=== PATIENT | female | born 1990 | race Caucasian/White ===

== ENCOUNTER 2017-04-09 12:50 | Outpatient (CLI) | payer MEDICAID, OTHER ==
--- NOTE | 2017-04-09 16:14 | ULT ---
PELVIC ULTRASOUND: HISTORY: patient. Left adnexal pain. Positive test. COMPARISON None. TECHNIQUE: Transvesical and endovaginal imaging of the pelvis is performed. The ovaries are interrogated. Gra y-scale, color-flow, Doppler imaging, and spectral wave-form analysis. FINDINGS: The uterus is identified, measuring 10 x 6 x 6.2 cm. There is a heterogeneous, thickened endometriu m with a diameter of 2.5 cm. The right ovary has a normal echotexture, measuring 2.7 x 2.2 x 2.8 cm. The left adnexa has a bilobed, hypoechoic focus, which appears to be paraovarian in location. Overa ll, this lesion and the ovary measure 3.9 x 3.2 x 4.9 cm. No significant free fluid in the pelvis. OVARIAN DOPPLER: Vascular flow to the left adnexal structures, as well as the right ovary. IMPRESSION: 1. Thickened endometrium without sonographic evidence of an intrauterine gestation. Differential c onsiderations include a missed spontaneous versus a sonographically occult ectopic pregnanc y versus an early intrauterine gestation. 2. Complex bilobed lesion in the left adnexa, which may represent a corpus luteal cyst or hemorrhag ic cyst. Imaging features are not typical for an ectopic . [id number], the possibilit y of a sonographically occult ectopic is still a consideration. Therefore, follow-up ultr asound and serial beta hCGs are recommended. The results of the study were discussed with Laverne Carney on 04/03/2017 at 1:58 p.m. CODE CR POS: [facility]
== END 2017-04-09 12:51 | disposition home or self-care (01) ==
LOC: ULT 12:50
PROVIDERS: ATTEND Family Medicine
DX: Z34.81 Encounter for supervision of other normal pregnancy, first trimester (principal); R93.8 Abnormal findings on diagnostic imaging of other specified body structures
CPT/HCPCS: 76856

== ENCOUNTER 2017-08-07 21:06 | Day surgery (SDC) | payer MEDICAID, OTHER ==
[2017-08-07 21:42] VITALS: TEMP 98.1; BMI 26.3
--- NOTE | 2017-08-07 21:51 | PDOC.EVN ---
Event Note - Event Note Event Note: @8443 L&D Triage Patient of Dr Roman CC: here for pelvic discomfort and urinary frequency HPI: 26 yo at 27 weeks with pelvic discomfort. No VB nor LOF. Good FM, no contractions. No recemt trauma. States urinary frequency bit no fevers nor dysuria. Review of systems: complete systems ROS done and pos per HPI Past medical: none Past surgical : none Allergies: none PHYSICAL: 112/65, 80 afebrile NAD abd soft, nt no evidence VB or LOF Monitors: cat 1 for EGA, no contractions on toco Assessment/plan: 27 weeks with pelvic discomfort. No evidence or HX of PTL plan: 1. monitors 2. check UA 3. no evidence contraction at this time
[2017-08-07 22:23] LABS: Bilirubin Negative (Negative); Blood, Urine Negative (Negative); Clarity CLOUDY (Clear); Glucose, Urine (Dipstick) Negative (Negative); Leukocyte Small (Negative); Nitrite Negative (Negative); Protein, Urine (Dipstick) Negative (Neg-Trace); Specific Gravity, Urine 1.021 (1.002-1.036)
[2017-08-07 22:25] LABS: Bacteria/HPF None Seen HPF (None Seen); Hyaline Casts/LPF 0-3 HYALINE CAST LPF (0-3 Hyaline); RBC/HPF 0-3 HPF (0-3); Squamous Epithelial 0-3 HPF (0-3); WBC/HPF 0-3 HPF (0-3)
--- NOTE | 2017-08-07 22:29 | PDOC.EVN ---
Event Note - Event Note Event Note: @2980: ADDENDUM: Incorrect EDC imputed at first. Patient confirmed she is NOT 27 weeks but actually 22 weeks and 4 days. Also now does state some abnormal discharge as well on/off. I have stopped the NST and ordered a VP3. No evidence labor at this time. Plan D/W patient and partner.
--- NOTE | 2017-08-07 23:09 | PDOC.EVN ---
Event Note - Event Note Event Note: Lab check: UA unremarkable. Awaiting VP3
--- NOTE | 2017-08-07 23:45 | PDOC.EVN ---
Event Note - Event Note Event Note: Lab check: awaiting VP3...called lab. Likely will not be back until tomorrow due to batch testing. Recommend she follow up results Wednesday with her MD.
== END 2017-08-08 | disposition home or self-care (01) ==
LOC: L&D/OP 21:06
PROVIDERS: ATTEND Family Medicine
DX: O99.89 Other specified diseases and conditions complicating pregnancy, childbirth and the puerperium (principal); R10.2 Pelvic and perineal pain; Z3A.22 22 weeks gestation of pregnancy
CPT/HCPCS: 81003; 81015; 87480; 87510; 87660

== ENCOUNTER 2017-09-26 11:07 | Day surgery (SDC) | payer OTHER ==
--- NOTE | 2017-09-26 11:23 | PDOC.LDHP ---
Labor and Delivery H&P Chief complaint: decreased movement HPI: 26 y/o at 29w5d, patient of Dr. Roman, presents with decreased movement since yesterday. She also reports continued irregular contractions but nothing new to her. Denies VB, LOF, or other concerns. ROS neg for HEENT, cv, pulm, gi, gu, neuro, psych, skin, musculoskeletal or constitutional symptoms other than mentioned above. OB History Details: 2 prior term SVDs Current complications: none Past Medical History: None Current medications: pre- vitamins Previous surgical history: none Allergies/Adverse Reactions: Allergies Allergy/AdvReac Type Severity Reaction Status Date / Time No Known Allergies Allergy Verified 06/22/15 08:19 Social history: none - Physical Exam Vital signs reviewed and normal: yes General: NAD, resting Lungs: nonlabored breathing Abdomen: gravid Extremeties: no edema FHT: category 1 (130s, mod variability, + accels, no decels) [place] contractions every: irregular - Vaginal Exam cm dilated: 0 (posterior, firm) Effacement: 0% Station: -3 - Assessment 26 y/o at 29w5d with reassuring status and no e/o PTL. - Plan -: D/c home with precautions. Advised to keep all appointments.
[2017-09-26 11:27] VITALS: BMI 27.6
[2017-09-26 11:34] VITALS: BP 104/59; TEMP 98.4
== END 2017-09-26 12:35 | disposition home or self-care (01) ==
LOC: L&D/OP 11:07
PROVIDERS: ATTEND Family Medicine
DX: O36.8130 Decreased fetal movements, third trimester, not applicable or unspecified (principal); Z3A.29 29 weeks gestation of pregnancy; Z79.899 Other long term (current) drug therapy
CPT/HCPCS: 59025; 99282

== ENCOUNTER 2017-09-30 19:27 | Inpatient (IN) | payer OTHER ==
[2017-09-30 19:57] VITALS: BMI 27.6
[2017-09-30 20:56] LABS: Bilirubin Negative (Negative); Blood, Urine Negative (Negative); Clarity CLEAR (Clear); Glucose, Urine (Dipstick) Negative (Negative); Leukocyte Negative (Negative); Nitrite Negative (Negative); Protein, Urine (Dipstick) Negative (Neg-Trace); Specific Gravity, Urine 1.012 (1.002-1.036); Urobilinogen 0.2 mg/dL (0.2-1.0)
[2017-09-30] MEDS ORDERED: Lactated Ringer's 500 ML IV SCH (21:30)
[2017-09-30] MEDS ORDERED: Lactated Ringer's 1,000 ML IV SCH (21:30)
--- NOTE | 2017-09-30 22:17 | PDOC.EVN ---
Event Note - Event Note Event Note: Continues to c/o of UCs despite po fluids here. UA returns negative. Fhts are stable. No decels seen. UCs seen every 3-4 mins. Plan; start iv for bolus. Observe closely. Dr. Roman notified.
[2017-09-30] MEDS ORDERED: Promethazine HCl 25 MG/ML VIAL IM PRN (23:08)
[2017-09-30] MEDS ORDERED: Docusate 100 MG CAP PO PRN (23:08)
[2017-09-30] MEDS ORDERED: Ondansetron HCl/PF 4 MG/2 ML Vial IVP PRN (23:08)
[2017-09-30] MEDS ORDERED: Magnesium Sulfate 20 GM/WATER 500 ML BAG IVPB SCH (23:15)
--- NOTE | 2017-09-30 23:24 | PDOC.EVN ---
Event Note - Event Note Event Note: Continues to c/o contractions despite IV fluids and Stadol x1. FHTs are stable. UCs continue q 2-3 mins. SVE by me= / with bulging ALEJANDRA. D/w Dr. Roman. Will start MgSo4, steroids and Ampicillin and obtain USG for EFW and presentation.
[2017-10-01] MEDS: Betamet Acet/Betamet Na Ph 30 MG/5 ML VIAL IM SCH (00:17)
[2017-10-01] MEDS: Lactated Ringer's 1,000 ML IV SCH ×2 (00:34→17:05)
[2017-10-01] MEDS: Magnesium Sulfate 20 gm/500 ml 20 GM/500 ML BAG IVPB SCH ×3 (00:35→17:30)
[2017-10-01] MEDS: Ampicillin 2 GM in Sodium Chloride 0.9% 100 ML IVPB SCH ×4 (00:42→18:19)
[2017-10-01 01:09] LABS: Hemoglobin 10.4 g/dL (12.0-16.0); Mean Corpuscular HGB CONC 36.4 g/dL (32.0-36.0); Mean Corpuscular Hemoglobin 31.3 pg (27.0-31.0); Mean Corpuscular Volume 85.8 fl (81.0-99.0); Mean Platelet Volume 7.6 fL (7.4-10.4); Platelet Count 160 thou/uL (130-400); RBC Distribution Width 11.2 % (11.5-14.5); Red Blood Cell (RBC) Count 3.32 mill/uL (4.20-5.40); White Blood Cell (WBC) Count 7.8 thou/uL (4.8-10.8)
--- NOTE | 2017-10-01 02:10 | PDOC.EVN ---
Event Note - Event Note Event Note: Mg load given, now at 2 gms/hr. 1st dose of steroids given. FHTs stable. UCs decreased to q 7 mins. USG shows vtx presentation and 1600+ gms. Will cont. MgSo4 and give 2nd dose of Celestone in 24 hrs.
--- NOTE | 2017-10-01 03:12 | SS ---
LABOR AND DELIVERY TRIAGE EVALUATION NOTE DATE OF EVALUATION: 09/30/2017 REGULAR PHYSICIAN: Glenn Roman MD EVALUATING PHYSICIAN: Tito Ribeiro MD CHIEF COMPLAINT: Contractions. HISTORY OF PRESENT ILLNESS: Ms. Aguiar is a 26-year-old white -0-0-2 with an estimated date of c onfinement of 12/07/2017 who presents to labor and delivery complaining of regular uterine contractio ns since earlier this afternoon. She denies vaginal bleeding or ruptured membranes. PAST OBSTETRICAL HISTORY: She has had 2 uncomplicated vaginal deliveries at term. She denies preter m labor with either one. Her current care has been with Dr. Roman. PAST MEDICAL HISTORY: Unremarkable. PAST SURGICAL HISTORY: None. CURRENT MEDICATIONS: vitamin. ALLERGIES: None. SOCIAL HISTORY: She denies tobacco or alcohol use. FAMILY HISTORY: Unremarkable. REVIEW OF SYSTEMS: Reports contractions. Denies nausea, vomiting, fever, chills, vaginal bleeding, or ruptured membranes. PHYSICAL EXAMINATION: VITAL SIGNS: Stable and she is afebrile. GENERAL: She is in no acute distress. ABDOMEN: Soft, nontender and gravid. On pelvic exam by the labor nurse, the cervix is 1 cm dilated, uneffaced with the presenting part high. heart rate tracing is stable with no decelerations. It is reassuring. Uterine contractions are seen every 2-4 minutes. ASSESSMENT: 1. 30 and 2/7 week intrauterine . 2. contractions, rule out labor. PLAN: At this time, the patient will be given IV fluid and observed. Urinalysis is pending. I have discussed the patient with Dr. Roman and we will continue to observe her for change.
--- NOTE | 2017-10-01 06:11 | PDOC.EVN ---
Event Note - Event Note Event Note: Feeling better. No c/o. FHTs reassuring. Only occasional UC seen. Mg at 2 gms/hr. Advance diet. Cont. present management.
[2017-10-01] MEDS ORDERED: Azithromycin 1,000 MG in Sodium Chloride 0.9% 500 ML IVPB ONE (08:00)
--- NOTE | 2017-10-01 08:27 | ULT ---
PRELIMINARY REPORT/[facility]/EMERGENTY AFTER-HOURS PROCEDURE US Uterus, Limited EXAM DATE/TIME: Exam ordered 09/30/2017 11:34 PM CLINICAL HISTORY: 26 years old, female; Pain; complicated by abdominal or pelvic pain; Lower; Third trimeste r; Gestational age or lmp: 31w3d; ; Patient HX: labor TECHNIQUE: Real-time ultrasound of the maternal uterus (limited) with image documentation. COMPARISON: No relevant prior studies available. FINDINGS: Fetus: Single live intrauterine gestation. Gestational age: biometry measurements are compatible with estimated gestational age of 31 week s 3 days. EFW: Estimated weight is 1616 g. Position: position is vertex. Heart rate: heart rate 130 beats per minute. Placenta: Placenta is anterior and unremarkable. Amniotic fluid: Amniotic fluid volume is normal with an SHERRILL of 17.4 cm. Cervix: Cervix is closed with length measuring 3.7 cm. IMPRESSION: Single live intrauterine gestation as above. Thank you for allowing us to participate in the care of your patient. Dictated and Authenticated by: Ubaldo Hall MD 10/01/2017 12:28 AM Central Time ([place] & [place]) FINAL REPORT OBSTETRIC SONOGRAM LIMITED: DATE: 09/30/17. TIME: Performed on an emergency basis at 2336 hours. HISTORY: Pelvic pain. Third trimester . FINDINGS: Findings agree with the preliminary report from [facility]. Single viable intrauterine gestat ion is confirmed with estimated gestational age of 31 weeks 3 days. Amniotic fluid index is 17.4. POS: [facility]
[2017-10-01] MEDS ORDERED: Acetaminophen 500 MG TAB PO PRN (18:24)
--- NOTE | 2017-10-01 19:05 | PDOC.EVN ---
Event Note - Event Note Event Note: L&D on 10/01 @ 1900: Notified by RN that patient concerned about ROM. There is no gross evidence of ROM clinically by bedside assesment. I have ordered amnisure and will sterile spec is positive.
[2017-10-01 19:35] LABS: Amnisure Internal Control QC ACCEPTABLE (ACCEPTABLE); Amnisure Test No Membranes Rupture (No Rupture)
[2017-10-02] MEDS: Ampicillin 2 GM in Sodium Chloride 0.9% 100 ML IVPB SCH ×4 (00:05→18:25)
[2017-10-02] MEDS: Betamet Acet/Betamet Na Ph 30 MG/5 ML VIAL IM SCH (00:05)
[2017-10-02] MEDS: Zolpidem Tartrate 5 MG TAB PO PRN ×2 (02:35→21:40)
[2017-10-02] MEDS ORDERED: Magnesium Sulfate 20 gm/500 ml 20 GM/500 ML BAG ONE (03:01)
[2017-10-02] MEDS: Lactated Ringer's 1,000 ML IV SCH (09:10)
[2017-10-03] MEDS: Ampicillin 2 GM in Sodium Chloride 0.9% 100 ML IVPB SCH ×2 (00:05→06:30)
[2017-10-03 08:44] VITALS: TEMP 99.2
[2017-10-03 11:38] VITALS: BP 99/58
[2017-10-03] MEDS: Lactated Ringer's 1,000 ML IV SCH (11:39)
== END 2017-10-03 12:05 | disposition home health service (06) | DRG 778 ==
LOC: L&D/OP 19:27 → L&D 23:14
PROVIDERS: ADMIT Family Medicine; ATTEND Family Medicine
DX: O60.03 Preterm labor without delivery, third trimester (principal); Z3A.30 30 weeks gestation of pregnancy
CPT/HCPCS: 36415; 51702; 76815; 81003; 84112; 85027; 87081; 87480; 87510; 87660; 99285; J0290; J0456; J0595; J0702; J2550; J3475; J7050

== ENCOUNTER 2017-10-11 21:24 | Day surgery (SDC) | payer OTHER ==
[2017-10-11 22:00] VITALS: BMI 27.6
[2017-10-11 23:00] LABS: Bilirubin Negative (Negative); Blood, Urine Negative (Negative); Clarity CLEAR (Clear); Glucose, Urine (Dipstick) Negative (Negative); Leukocyte Negative (Negative); Nitrite Negative (Negative); Protein, Urine (Dipstick) Negative (Neg-Trace); Specific Gravity, Urine 1.007 (1.002-1.036); Urobilinogen 0.2 mg/dL (0.2-1.0)
[2017-10-11 23:02] LABS: Bacteria/HPF None Seen HPF (None Seen); Hyaline Casts/LPF 0-3 HYALINE CAST LPF (0-3 Hyaline); RBC/HPF 0-3 HPF (0-3); Squamous Epithelial None Seen HPF (0-3); WBC/HPF None Seen HPF (0-3)
[2017-10-11 23:22] LABS: FFN Internal QC Analyzer PASS (PASS); FFN Internal QC Cassette PASS (PASS); Fetal Fibronectin Negative (Negative)
--- NOTE | 2017-10-12 02:59 | PRG ---
DATE OF SERVICE: 10/11/2017 OB ER ENCOUNTER PRIMARY OB: Glenn Roman MD CHIEF COMPLAINT: Abdominal pains. HISTORY OF PRESENT ILLNESS: The patient is a 26-year-old, G3, P2 female with an intrauterine at 31 weeks and 6 days, who is presenting to labor and delivery after experiencing abdominal contractions or abdominal pain since about 2 o'clock this afternoon. The patient reports that she has not had an increase in severity, but that they have persisted. The patient denies pain with the contractions, but has been told to come for evaluation if she has more than 4 contractions in an hour. The patient denies any illness, fever, fall, headache, chest pain, shortness of breath, nausea, vomiting, diarrhea, constipation. She does report she has a rash in her upper chest that has been itching that she has put cortisone on. She does not have it in any other location. She does report she was sitting outside in the sun a few days ago. The patient denies vaginal bleeding, leakage of fluid. She denies urinary urgency or frequency. PAST MEDICAL HISTORY: Negative. PAST SURGICAL HISTORY: Negative. ALLERGIES: No known drug allergies. MEDICATIONS: vitamins. SOCIAL HISTORY: Denies drug, alcohol, or tobacco use. MEDICATIONS: The patient reports she just completed a course of Keflex that she was given at her time of discharge, the last time she was in the hospital for an unknown reason. OBSTETRIC LABS: Unavailable. REVIEW OF SYSTEMS: Per HPI. PHYSICAL EXAMINATION: VITAL SIGNS: Blood pressure is 119/68, pulse of 70, respiratory rate of 20, satting 99% on room air, temperature 98.3. GENERAL: She appears to be in no acute distress. She is alert, oriented, cooperative, and pleasant to interact with. HEENT: Head is normocephalic, atraumatic. LUNGS: Clear to auscultation bilaterally. HEART: Regular rate and rhythm. ABDOMEN: Gravid, soft, and nontender. EXTREMITIES: Nontender, nonedematous. CERVICAL EXAM: 150, -1 station per nursing staff, which is unchanged from her last several visits here. heart tracing was performed for abdominal pain. Baseline is noted to be in the 130s with moderate long-term variability, positive accelerations, no decelerations. Tocometer shows some irritability. fibronectin is negative. Urinalysis is negative for protein, ketones, nitrites, leukocyte esterase, white blood cells, bacteria. ASSESSMENT AND PLAN: The patient is a 26-year-old female with an intrauterine at 31 weeks and 6 days, status post steroids from a previous recent admission, who is experiencing contractions with no evidence of labor. The patient has no evidence of urinary tract infection. VP3 is pending and will be available tomorrow. The patient has been discharged to home with labor precautions. GIBSON
--- NOTE | 2017-10-12 08:13 | PDOC.EVN ---
Event Note - Event Note Event Note: 10/12/17 at 0806: Asked to follow up on VP3 from last night: Post-discharge lab check: VP3 negative x 3.
== END 2017-10-11 23:30 | disposition home or self-care (01) ==
LOC: L&D/OP 21:24
PROVIDERS: ATTEND Family Medicine
DX: O99.89 Other specified diseases and conditions complicating pregnancy, childbirth and the puerperium (principal); R10.9 Unspecified abdominal pain; Z3A.31 31 weeks gestation of pregnancy; Z79.899 Other long term (current) drug therapy
CPT/HCPCS: 59025; 81001; 82731; 87480; 87510; 87660; 99285

== ENCOUNTER 2017-11-15 19:50 | Day surgery (SDC) | payer OTHER ==
[2017-11-15 20:19] VITALS: BMI 29.0
[2017-11-15 20:26] VITALS: BP 110/66; TEMP 98.3
--- NOTE | 2017-11-15 20:52 | PDOC.LDHP ---
Labor and Delivery H&P Chief complaint: contractions, loss of fluid, decreased movement HPI: Triage Patient seen at 2044 CC: possible LOF and contractions Patient of Dr baez HPI: 26 yo at 36 weeks and 6 days here for above. No trauma, no VB, no gush of fluyid, possible leakage. No GI or issues. States had steroids at 31 weeks for threatened labor. Review of Systems: Complete ROS completed and negative except as per HPI Current gestational age (weeks): 36 (6 days) Dating criteria: last menstrual period Grav: 3 Para: 2 OB History Details: x2 Current complications: other (threatened PTL earlier this s/ p steroids then) Previous surgical history: none Allergies/Adverse Reactions: Allergies Allergy/AdvReac Type Severity Reaction Status Date / Time No Known Allergies Allergy Verified 11/15/17 20:18 - Physical Exam Vital signs reviewed and normal: yes General: NAD Heart: RRR Lungs: CTAB Abdomen: gravid Extremeties: no edema FHT: category 1, variability present [place] contractions every: irregular, mild to palaption - Assessment Threatened late labor, possible LOF, decreased FM: NST cat 1 - Plan Plan: observation in L&D (I have ordered amnisure. No gross evidence LOF grossly. Cervical exam pending. Cat 1 NST with accels present...reassuring status. Observe for now.)
[2017-11-15 21:19] LABS: Amnisure Test No Membranes Rupture (No Rupture)
[2017-11-15 21:20] LABS: Amnisure Internal Control QC ACCEPTABLE (ACCEPTABLE)
--- NOTE | 2017-11-15 22:11 | PDOC.EVN ---
Event Note - Event Note Event Note: L&D recheck: Exam was negative for ROM Amnisure was negative CX was /-1/ceph and no change at point of recheck from arrival exam. OK for Dr baez follow up tomorrow. I have seen and evaluated the patient at bedside.
== END 2017-11-15 22:20 | disposition home or self-care (01) ==
LOC: L&D/OP 19:50
PROVIDERS: ATTEND Family Medicine
DX: O60.03 Preterm labor without delivery, third trimester (principal); Z3A.36 36 weeks gestation of pregnancy
CPT/HCPCS: 84112; 99283